=== PATIENT | male | born 1955 | race Caucasian/White ===

== ENCOUNTER → 2018-01-03 | Outpatient (CLI) | payer BC ==
--- NOTE | 2018-01-03 20:16 | RAD ---
EXAM DESCRIPTION: Hip,Right 2 Views CLINICAL HISTORY: 62 years Male, PAIN IN RIGHT HIP COMPARISON: October 02, 2016. FINDINGS: Changes of right hip arthroplasty are again noted, essentially unchanged. The hip joint prosthesis appears in satisfactory position. No evidence of acute fracture or dislocation or destructive bony lesion. There are slightly increased calcifications near the greater trochanter. IMPRESSION: No acute bony abnormality identified. Right hip arthroplasty. Electronically signed by: Abiodun Moreno MD 01/03/2018 8:15 PM [facility]
--- NOTE | 2018-01-03 20:41 | RAD ---
EXAM DESCRIPTION: Pelvis CLINICAL HISTORY: 62 years Male, PAIN IN RIGHT HIP COMPARISON: October 02, 2016. FINDINGS: There is no evidence of acute fracture or dislocation or destructive bony lesion. A right hip arthroplasty is again noted. 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 There may be slight narrowing of the upper left SI joint compared to the right. Overall, no significant appearing interval change is seen. There are calcifications near the greater trochanters, slightly greater on the right than previously. IMPRESSION: No acute bony abnormality identified in the pelvis. Status post right hip arthroplasty. Slight chronic changes in the left hip. Electronically signed by: Abiodun Moreno MD 01/03/2018 8:40 PM [facility]
== END ==
LOC: RAD 08:58
PROVIDERS: ATTEND Orthopaedic Surgery
DX: M25.551 Pain in right hip (principal); Z96.641 Presence of right artificial hip joint